=== PATIENT | female | born 1985 | race Two or more races ===

== ENCOUNTER 2021-01-26 15:16 | Emergency (ER) | payer OTHER ==
[~2021-01-26] VITALS: Ht 154.9 cm; Wt 103.0 kg
[2021-01-26 15:28] VITALS: BP 135/75
--- NOTE | 2021-01-26 15:56 | PHYS DOC ---
General Chief Complaint: UPPER EXTREMITY PAIN Stated Complaint: LEFT ARM PAIN Time Seen by MD: 15:17 Problems: (1) Wrist pain, left History of Present Illness Initial Comments Patient is a 35-year-old female presents to the emergency department with left wrist pain that began yesterday. Patient states yesterday she noticed mild discomfort and some swelling, with worsening pain today 3 out of 10 which she describes as soreness. She states the pain is worse with dorsiflexion, with radiation proximally towards her elbow. Patient works in registration here in the department, typing for several hours per day. Patient denies any trauma/injury or rash. She denies pain in any other joints. Patient denies headache, fever, chest pain, palpitations, shortness of breath, cough. Onset: yesterday Severity: mild (3/10) Pain/Injury Location: left wrist Method of Injury: other (None) Allergies: Coded Allergies: No Known Drug Allergies (Unverified , 01/26/21) Past Medical History Surgical History: other (Tubal ligation) Review of Systems Constitutional: no symptoms reported Respiratory: no symptoms reported Cardiovascular: no symptoms reported Gastrointestinal: no symptoms reported Musculoskeletal: see HPI Skin: no symptoms reported Physical Exam General Appearance: WD/WN, no apparent distress Cardiovascular/Respiratory: regular rate, rhythm, no M/R/G, normal peripheral pulses, normal breath sounds, no respiratory distress Shoulder: normal inspection, no evidence of injury Elbow/Forearm: normal inspection, no evidence of injury Wrist: no evidence of injury (No lacerations, ecchymosis, obvious deformity), limited ROM (Pain with dorsiflexion with radiation proximally), soft tissue tenderness, swelling (Left wrist visibly swollen) Hand: no evidence of injury, normal ROM Neurologic/Tendon: responds to pain (Positive Phalen's sign) Psychiatric: alert, oriented x 3 Skin: normal color, warm/dry Orders, Labs, Meds Due to nontraumatic nature of pain, imaging is deferred. Patient's occupation and symptoms are consistent with carpal tunnel syndrome. Naproxen and a Velcro wrist splint were provided, as well as instruction. Refe rral to Ortho will be provided to the patient to follow-up for ongoing care and definitive diagnosis. Patient reports improved symptoms with splint placement. She is agreeable to treatment plan. Departure Disposition: 01 HOME / SELF CARE / HOMELESS Condition: STABLE Patient Instructions: Carpal Tunnel Syndrome, [id number] Additional Instructions: You may call [facility] orthopedic department at [phone]. They will have access to your visit today, and can give you further diagnosis and management. Return to the department for worsening of symptoms or pain. Departure Departure: Impression: Primary Impression: Wrist pain, left Disposition: HOME / SELF CARE / HOMELESS Condition: STABLE Patient Instructions: Carpal Tunnel Syndrome, [id number] Additional Instructions: You may call [facility] orthopedic department at [phone]. They will have access to your visit today, and can give you further diagnosis and management. Return to the department for worsening of symptoms or pain. Scripts Naproxen (NAPROXEN) 500 Mg Tablet 1 TAB PO BID for pain for 30 Days, #60 TAB 0 Refills Prov: TAMMI JOHNSTON 01/26/21 TAMMI JOHNSTON Jan 26, 2021 15:56
[2021-01-26] MEDS ORDERED: NAPROXEN 500 MG TABLET PO ONE (16:00)
[2021-01-26] MEDS ORDERED: NAPR-514 PO (16:40)
== END 2021-01-26 16:35 | disposition home or self-care (01) ==
LOC: ER 15:16
DX: M25.532 Pain in left wrist (principal); R22.32 Localized swelling, mass and lump, left upper limb
CPT/HCPCS: 29125; 99283

== ENCOUNTER 2021-08-23 18:24 | Emergency (ER) | payer OTHER ==
[~2021-08-23] VITALS: Ht 154.9 cm; Wt 104.0 kg
[~2021-08-23 18:24] MED LIST: NAPR-514 PO
[2021-08-23] MEDS ORDERED: IPRATRPIUM/ALBUTEROL 0.5/2.5MG 3 ML NEBU. NEB ONE (19:00)
--- NOTE | 2021-08-23 19:03 | PHYS DOC ---
Past History Past Surgical History: Tonsillectomy, Tubal ligation Alcohol Use: Rarely General Adult EDM: Chief Complaint: COUGH HPI: HPI: ".. I ve been coughing a lot... and congested. I did see the clinic on Tue.. they said I had a viral syndrome.. and put me on some meds.. but I am not better.; coughing all the time.. to the point my chest hurts... Patient is a 36 year old female dependent who presents with above hx and complaints of cough , congestion, and burning chest pain related to persistent hacking coughing spasms. Patient only follows at [place]. Patient up-to-date with vaccinations including COVID. Has been using her meds as directed. No recent travel. No specific ill contacts outside the family unit has been exposed to her daughter who was recently diagnosed positive for streptococcal pharyngitis.. Normally healthy. Review of Systems: Review of Systems: Constitutional: Complains of subjective fever or chills Eyes: Denies change in visual acuity HENT: Complains of nasal congestion and sore throat Respiratory: Complains of of cough and shortness of breath Cardiovascular: Complains of burning chest pain with coughing spasms GI: Denies abdominal pain, nausea, vomiting, bloody stools or diarrhea : Denies dysuria Musculoskeletal: Denies back pain or joint pain Integument: Denies rash Neurologic: Denies headache, focal weakness or sensory changes Endocrine: Denies polyuria or polydipsia Lymphatic: Denies swollen glands Psychiatric: Denies depression or anxiety Family History: Family History: Daughter recent diagnosis strep pharyngitis Current Medications: Current Meds: Current Medications Medications (Trade) Dose Ordered Sig/Nicolle Start Time Stop Time Status Last Admin Dose Admin Albuterol/ Ipratropium (Duoneb) 3 ml 1X ONCE 08/23/21 19:00 08/23/21 19:01 DC Allergies: Allergies: Allergies Coded Allergies Type Severity Reaction Last Updated Verified No Known Drug Allergies 08/23/21 No Physical Exam: PE: Constitutional: Moderate acute distress, non-toxic appearance. [] HENT: Normocephalic, atraumatic, bilateral external ears normal, oropharynx moist, injected pharynx, no oral exudates, nose swollen turbinates clear rhinorrhea Eyes: PERRLA, EOMI, conjunctiva normal, no discharge. [] Neck: Normal range of motion, no tenderness, supple, no stridor. [] Cardiovascular Tachycardic heart rate regular rhythm, no murmur [] bedside monitor shows a sinus rhythm. Tachycardia episodes appear to be related to the coughing spasms Lungs & Thorax: Bilateral breath sounds clear to auscultation [] Abdomen: Bowel sounds normal, soft, no tenderness, no masses, no pulsatile masses. [] Skin: Warm, dry, no erythema, no rash. [] Back: No tenderness, no CVA tenderness. [] Extremities: No tenderness, no cyanosis, no clubbing, ROM intact, no edema. [] Neurologic: Alert and oriented X 3, normal motor function, normal sensory function, no focal deficits noted. [] Psychologic: Affect anxious,, judgement normal, mood normal. [] Current Patient Data: Vital Signs: Vital Signs Date Time Temp Pulse Resp B/P (MAP) Pulse Ox O2 Delivery O2 Flow Rate FiO2 08/23/21 18:48 99.5 108 20 134/86 (102) 100 Room Air EKG: EKG: My interpretation EKG shows a sinus tachycardia 114 bpm. No signs of acute STEMI of contralateral changes. Time of EKG is 1838 hrs. Radiology/Procedures: Radiology/Procedures: [] Heart Score: C/O Chest Pain: Yes HEART Score for Chest Pain: HEART Score for Chest Pain Response (Comments) Value History Slighlty/Non-Suspicious 0 ECG Normal 0 Age < 45 0 Risk Factors No Risk Factors 0 Total 0 Risk Factors: Risk Factors: DM, Current or recent (<one month) smoker, HTN, HLP, family history of CAD, obesity. Risk Scores: Score 0 - 3: 2.5% MACE over next 6 weeks - Discharge Home Score 4 - 6: 20.3% MACE over next 6 weeks - Admit for Clinical Observation Score 7 - 10: 72.7% MACE over next 6 weeks - Early Invasive Strategies Course & Med Decision Making: Course & Med Decision Making Pertinent Labs and Imaging studies reviewed. (See chart for details) Patient declines cardiac work-up. Patient use MDI 2 puffs 4 times a day. Take meds as previous directed. Take prednisone 50 mg a day for next 5 days. Take Zithromax 250 mg x 5 days. Follow-up with primary care. Return if any concerns. May use Benadryl 25 to 50 mg at 4 times a day for coughing spasms. Return if any concerns. SPECT this is primarily viral syndrome however her exposure to some streptococcal pharyngitis with her daughter will go ahead and cover for atypical pneumonias and strep pharyngitis. Impression: 1. Viral syndrome 2. Chest wall pain 3. Exposure to strep pharyngitis 4. Tachycardia [] Dragon Disclaimer: Dragon Disclaimer: This electronic medical record was generated, in whole or in part, using a voice recognition dictation system. Departure Departure: Referrals: AMEYA SEALS DO (PCP) Scripts Azithromycin (ZITHROMAX) 250 Mg Tablet 250 MG PO DAILY for ANTI-BIOTIC for 5 Days, #5 TAB 0 Refills Prov: PRIMO WHITING MD 08/23/21 Prednisone (PREDNISONE) 50 Mg Tablet 50 MG PO DAILY06 for daily for 5 Days, #5 TAB Prov: PRIMO WHITING MD 08/23/21 Azithromycin (ZITHROMAX) 250 Mg Tablet 250 MG PO DAILY for ANTI-BIOTIC for 5 Days, #5 TAB 0 Refills Prov: PRIMO WHITING MD 08/23/21 Prednisone (PREDNISONE) 50 Mg Tablet 50 MG PO DAILY for reactive airway for 5 Days, #5 TAB Prov: PRIMO WHITING MD 08/23/21 Dragon Disclaimer This chart was dictated in whole or in part using Voice Recognition software in a busy, high-work load, and often noisy Emergency Department environment. It may contain unintended and wholly unrecognized errors or omissions. PRIMO WHITING MD Aug 23, 2021 19:03
[2021-08-23] MEDS ORDERED: AZITHROMYCIN 250 MG TABLET. PO ONE (19:15)
[2021-08-23] MEDS ORDERED: predniSONE 10 MG TABLET. PO ONE (19:15)
[2021-08-23] MEDS ORDERED: AZIT250T PO ×2 (19:26→21:58)
[2021-08-23] MEDS ORDERED: PRED50TA PO ×2 (19:26→21:58)
[2021-08-23] MEDS ORDERED: ALBUTEROL SULFATE 8GM INHALER. INH ONE (19:30)
[2021-08-23 20:05] LABS: INFLUENZA A PATIENT NEGATIVE (NEGATIVE); INFLUENZA B PATIENT NEGATIVE (NEGATIVE)
[2021-08-23 21:57] VITALS: BP 128/84
--- NOTE | 2021-08-24 01:18 | EKG ---
[address] [address] Test Date: 2021-08-23 Test Time: 18:38:22 Pat Name: ADALBERTO DELAROSA Department: Room: Gender: F Ct Mri Technologist: : [id number] Requested By: PRIMO WHITING Order Number: [id number] Reading MD: Tyrell Hand Measurements Intervals [place] Rate: 114 P: 90 MI: 106 QRS: 45 QRSD: 80 T: 41 QT: 304 QTc: 422 Interpretive Statements SINUS TACHYCARDIA Electronically Signed On 08-24-2021 9:01:41 CDT by Tyrell Hand
--- NOTE | 2021-08-24 09:30 | RAD ---
EXAMINATION: XR CHEST 2V CLINICAL HISTORY: Congestion, cough. EXAM DATE/TIME: 08/23/2021 6:54 PM COMPARISON: None FINDINGS: Lines, Tubes, and Devices: None. Cardiomediastinal Silhouette: Within normal limits. Lungs and Pleura: Mild patchy opacities in the right mid and lower lung zones. Minimal patchy opaciti es in the left midlung zone. No pleural effusion or pneumothorax. Bones and Soft Tissues: No acute osseous abnormality. IMPRESSION: Right greater than left patchy airspace disease as described, suspicious for atypical pneumonia. Electronically signed by: Arvind Valadez DO (08/24/2021 9:28 AM) [id number]
== END 2021-08-23 22:00 | disposition home or self-care (01) ==
LOC: ER 18:24
DX: B34.9 Viral infection, unspecified (principal); J02.0 Streptococcal pharyngitis; R00.0 Tachycardia, unspecified; R07.89 Other chest pain; Z20.822 Contact with and (suspected) exposure to COVID-19
CPT/HCPCS: 71046; 87428; 93005; 94640; 99284; J7512; 94664